=== PATIENT | female | born 1995 | race Caucasian/White ===

== ENCOUNTER 2023-10-27 11:12 | Emergency (ER) | payer OTHER ==
[~2023-10-27] VITALS: Ht 160 cm; Wt 59.1 kg
[2023-10-27] MEDS ORDERED: PNV1TABL77 PO (11:15)
[2023-10-27 11:17] VITALS: BP 103/61; PULSE 80; RESP 18; TEMP 98.6
[2023-10-27 12:26] LABS: BASOPHILS % (AUTO) 0.4 % (0.0-2.0); HEMATOCRIT 39.7 % (36-46); HEMOGLOBIN 13.3 g/dL (12.0-16.0); LYMPHOCYTES # (AUTO) 1.5 K/uL (1.0-4.8); LYMPHOCYTES % (AUTO) 14.7 % (22.0-44.0); MEAN CORPUSCULAR HEMOGLOBIN 29.6 pg (26.0-34.0); MEAN CORPUSCULAR HGB CONC 33.5 G/dL (31.0-37.0); MEAN CORPUSCULAR VOLUME 89 fL (80-100); MONOCYTES # (AUTO) 0.6 K/uL (0.1-1.0); MONOCYTES % (AUTO) 6.4 % (2.0-9.0); NEUTROPHILS # (AUTO) 7.8 K/uL (1.8-7.7); NEUTROPHILS % (AUTO) 77.5 % (40.0-70.0); PLATELET COUNT (AUTO) 276 K/uL (150-450); RED BLOOD CELL COUNT(AUTO) 4.49 MIL/uL (4.00-5.20); WHITE BLOOD COUNT (AUTO) 10.1 K/uL (4.5-11.0)
[2023-10-27] MEDS: SODIUM CHLORIDE 0.9% 1,000 ML IV ONE (12:32)
[2023-10-27] MEDS: DiphenhydrAMINE HCL 50 MG/ML VIAL IVP ONE (12:32)
[2023-10-27] MEDS: METOCLOPRAMIDE HCL 5 MG/ML 2 ML VIAL IVP ONE (12:32)
[2023-10-27] MEDS: ACETAMINOPHEN 500 MG TABLET PO ONE (12:32)
[2023-10-27 12:50] LABS: ANION GAP 13 mmol/L (8-16); CALCIUM, TOTAL 9.4 mg/dL (8.8-10.5); CARBON DIOXIDE 24 mmol/L (22-29); CHLORIDE 101 mmol/L (98-107); CREATININE 0.73 mg/dL (0.60-1.30); GLOMERULAR FILTR. RATE CALC > 60 mL/min (>60); GLUCOSE,RANDOM 82 mg/dL (70-110); POTASSIUM 3.4 mmol/L (3.5-5.1); SODIUM SERUM 138 mmol/L (136-145); UREA NITROGEN, BLOOD 11 mg/dL (7-18)
[2023-10-27 13:25] LABS: ALANINE AMINOTRANSFERASE 16 U/L (12-78); ALBUMIN 3.8 g/dL (3.4-5.0); ALKALINE PHOSPHATASE 85 U/L (46-116); ASPARTATE AMINOTRANSFERASE 13 U/L (15-37); BILIRUBIN,TOTAL 0.5 mg/dL (0.1-1.0); HCG,QUANTITATIVE 67675 mIU/mL (0-6); TOTAL PROTEIN, SERUM 7.9 g/dL (6.4-8.2)
== END 2023-10-27 13:56 | disposition home or self-care (01) ==
LOC: EMS 11:12
DX: O26.891 Other specified pregnancy related conditions, first trimester (principal); E87.6 Hypokalemia; R51.9 Headache, unspecified; Z3A.01 Less than 8 weeks gestation of pregnancy
CPT/HCPCS: 99284; 96374; 96361; 96375; 80048; 80076; 84702; 85025; 36415; J1200; J2765; J7030